=== PATIENT | female | born 1960 ===

== ENCOUNTER 2017-07-15 12:56 | Emergency (ER) | payer SELFPAY ==
[2017-07-15 13:09] VITALS: BMI 26.5
[2017-07-15 13:11] VITALS: BP 143/76; PULSE 90; RESP 18; TEMP 98; O2SAT 98
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
== END 2017-07-15 13:49 | disposition home or self-care (01) ==
LOC: C.ER 12:56
DX: M79.1 Myalgia (principal)